=== PATIENT | female | born 1970 | race African-American/Black ===

== ENCOUNTER 2025-02-01 23:51 | Emergency (ER) | payer OTHER ==
[~2025-02-01] VITALS: Ht 177.8 cm; Wt 85.0 kg
[2025-02-01 23:59] VITALS: O2SAT 100
[2025-02-02] MEDS ORDERED: OFLO5DRO4 LEFT EAR (01:20)
[2025-02-02 01:30] VITALS: BP 127/81; PULSE 72; RESP 18; TEMP 36.9; O2SAT 100
== END 2025-02-02 01:48 | disposition home or self-care (01) ==
LOC: ER 02-02 00:39
DX: H92.09 Otalgia, unspecified ear (principal); Z88.0 Allergy status to penicillin
CPT/HCPCS: 99283